=== PATIENT | female | born 2000 | race Caucasian/White ===

== ENCOUNTER 2023-06-09 18:41 | Emergency (ER) | payer SELFPAY ==
[2023-06-09 19:25] VITALS: BP 162/90; PULSE 87; RESP 16; TEMP 37.2; O2SAT 95; BMI 36.9
--- NOTE | 2023-06-09 19:43 | EXP.UTC ---
Discharge Plan Disposition Patient Disposition: Home, Self-Care Condition: Good Prescriptions Prescriptions: New cephalexin [cephalexin] 500 mg tablet 500 mg PO BID 7 Days Qty: 14 0RF Referrals Follow up/Referrals: Provider,Referral, MD [Primary Care Provider] - See instructions Activity Restrictions/Add. Instructions Additional Instructions/Restrictions: Increase fluids, water and not soda or tea. Can drink cranberry juice or cranberry extract. Wipe front to back Wear cotton underwear Empty bladder after intercourse Start antibiotics immediately and make sure you take the full course although you may start to see improvement over the next 48 hours. You can eat yogurt or take probiotics to decrease diarrhea or yeast infection caused by the antibiotic Be sure to follow-up anytime for new or worsening symptoms in 48 hours for wound urine culture results be sure to let you PCP no recent urine for culture so they can request records and ensure that you have appropriate antibiotic if you are not getting better or getting worse. If symptoms worsen or do not improve return or be seen in the ER. Follow-up with primary care this week. Clinical Impressions Clinical Impression: UTI (urinary tract infection) Qualifiers: Urinary tract infection type: acute cystitis Hematuria presence: without hematuria Qualified Code(s): N30.00 - Acute cystitis without hematuria Instructions Patient Instructions: DI for Urinary Tract Infection (UTI) [facility] [facility] [place] General Stated complaint: poss UTI Mode of Arrival: Ambulatory Source of Information: Patient Limitations: No Limitations Time Seen by Provider: 06/09/23 19:43 Description of Symptoms (Recalled from Triage Doc. by RN): Pt's symptoms are burning and pressure. HEENT Symptoms (Recalled from RN notes): Yes Resp Symptoms (Recalled from RN notes): No Skin Symptoms (Recalled from RN notes): No MS Symptoms (Recalled from RN notes): No Functional Status (Recalled from RN notes): n/a History of Present Illness Provider Complaint: 23 yr old female presents for burning, freq, urgency, pressure for 2 days Related Data Previous Rx's Medication Instructions Recorded cephalexin 500 mg tablet 500 mg PO BID 7 days #14 tabs 06/09/23 Allergies Allergy/AdvReac Type Severity Reaction Status Date / Time No Known Allergies Allergy Verified 06/09/23 19:40 Worker's Comp Is this a Worker's Comp case?: No [facility] Disclaimer: The information contained in this section may have been updated after the patient was seen, as this information can be updated by other users. Social History , BOX [employer]KER [employer]ER[employer]) Smoking Status: Smoker, status unknown alcohol intake: never current occupational status: employed Travel in the last 8 weeks: None ROS Obtained: Yes All systems reviewed & no additional complaints except as documented Constitutional Constitutional: Reports system reviewed and no additional complaints, except as documented Eyes Eyes: Reports system reviewed and no additional complaints, except as documented ENT Ears, Nose, Mouth, and Throat: Reports system reviewed and no additional complaints, except as documented Cardiovascular Cardiovascular: Reports system reviewed and no additional complaints, except as documented Respiratory Respiratory: Reports system reviewed and no additional complaints, except as documented Gastrointestinal Gastrointestingal: Reports system reviewed and no additional complaints, except as documented Genitourinary Female Genitourinary: Reports system reviewed and no additional complaints, except as documented, Reports as per HPI, Reports dysuria, Reports urinary frequency, Reports urinary hesitancy and Reports urinary urgency Musculoskeletal Musculoskeletal: Reports system reviewed and no additional complaints, except as documented Integumentary/Breasts Skin/Breast: Reports system reviewed and no additional complaints, except as documented Neurologic Neurologic: Reports system reviewed and no additional complaints, except as documented Endocrine Endocrine: Reports system reviewed and no additional complaints, except as documented Physical Exam General General appearance: alert and in no apparent distress ENT ENT exam: Present normal exam, normal oropharynx, mucous membranes moist, TM's normal bilaterally and normal external ear exam Neck Neck exam: Present normal inspection, full ROM and trachea midline; Absent meningismus or lymphadenopathy Respiratory Respiratory exam: Present normal lung sounds bilaterally; Absent respiratory distress Cardiovascular Cardiovascular exam: Present regular rate and normal rhythm; Absent JVD Abdominal Exam Abdominal exam: Present soft and normal bowel sounds; Absent distention, tenderness or guarding Neurological Exam Neurological exam: Present alert and oriented X3 Skin Skin exam: Present warm, dry, intact and normal color Medical Decision Making Medical Records Medical records reviewed: Yes I reviewed the patient's medical records. Anthony Inquiry Pt receiving controlled substance: No Anthony was queried for this patient: No Vital Signs: 06/09/23 19:25 Temperature 99.0 F Temperature Source Oral Pulse Rate [Right Radial] 87 Respiratory Rate 16 Blood Pressure [Right Arm] 162/90 H Blood Pressure Mean [Right Arm] 114 Blood Pressure Source [Right Arm] Automatic Cuff Blood Pressure Position [Right Arm] Sitting 02 Sat by Pulse Oximetry 95 Oxygen Delivery Method Room Air Orders (Tests/Meds): ORDERS Category Date Time Status Urine Culture Stat Micro 06/09/23 19:41 Ordered
[2023-06-09 19:49] LABS: Apearance,Urine Clear (Clear); Bilirubin,Urine Negative (Negative); Blood, Urine Negative (Negative); Color,Urine Yellow (Yellow); Glucose,Urine (UA) Negative (Negative); Ketones,Urine Negative (Negative); Protein,Urine Negative (Negative); UTC Leukocyte Esterase,Urine Trace (Negative); UTC Nitrate,Urine Negative (Negative); Urobilinogen,Urine 0.2 EU/dl (0.2)
[2023-06-09 19:56] VITALS: BP 162/90; PULSE 87; RESP 16; TEMP 37.2; O2SAT 95
== END 2023-06-09 19:56 | disposition home or self-care (01) ==
PROVIDERS: Emergency Provider Nurse Practitioner Family
DX: N39.0 Urinary tract infection, site not specified (principal); B96.89 Other specified bacterial agents as the cause of diseases classified elsewhere
CPT/HCPCS: 81003; 87086; 99204; 99212; G0463

== ENCOUNTER 2023-08-19 01:48 | Emergency (ER) | payer SELFPAY ==
[2023-08-19 01:49] VITALS: BP 135/81; PULSE 80; RESP 18; TEMP 36.5; O2SAT 98; BMI 29.0
--- NOTE | 2023-08-19 01:52 | PC.NURSE ---
Dr. Park utilized hemostats to remove earring back from earring post. No further injury noted.
--- NOTE | 2023-08-19 01:54 | HMH.EDGENADL ---
Discharge Plan Disposition Patient Disposition: Home, Self-Care Prescriptions Prescriptions: No Action cephalexin [cephalexin] 500 mg tablet 500 mg PO BID 7 Days Qty: 14 0RF Referrals Follow up/Referrals: Provider,Referral, MD [Primary Care Provider] - See instructions Clinical Impressions Clinical Impression: Ear foreign body Qualifiers: Encounter type: initial encounter Laterality: left Qualified Code(s): T16.2XXA - Foreign body in left ear, initial encounter Discharge ED Provider: Hebert Park General Adult HPI General Stated complaint: piercing stuck in left ear Time Seen by Provider: 08/19/23 01:50 History of Present Illness HPI narrative: 23-year-old female without significant past medical history presents because they cannot get the earring out of her right earlobe. It is hurting a little bit but not significantly. Is been no drainage. It has been present for a few months at least. Related Data Previous Rx's Medication Instructions Recorded cephalexin 500 mg tablet 500 mg PO BID 7 days #14 tabs 06/09/23 Allergies Allergy/AdvReac Type Severity Reaction Status Date / Time No Known Allergies Allergy Verified 06/09/23 19:40 [facility] Disclaimer: The information contained in this section may have been updated after the patient was seen, as this information can be updated by other users. Social History (Updated 06/09/23 @ 19:47 by Kenroy Castro ([facility]), SURGICAL TECHNOLOGY INSTRUCTOR) Smoking Status: Smoker, status unknown alcohol intake: never current occupational status: employed Travel in the last 8 weeks: None ROS Obtained: Yes All systems reviewed & no additional complaints except as documented Physical Exam General General appearance: alert and in no apparent distress Head Head exam: atraumatic and normocephalic Eye Eye exam: Present normal appearance, PERRL and EOMI ENT ENT exam: Present normal oropharynx, normal external ear exam and other (Stud earring in the left earlobe, free spinning, no erythema or drainage to suggest infection.) Neck Neck exam: Present normal inspection and full ROM Chest Chest inspection: Present normal inspection and symmetric chest wall rise; Absent tenderness Respiratory Respiratory exam: Present normal lung sounds bilaterally; Absent respiratory distress Cardiovascular Cardiovascular exam: Present regular rate and normal rhythm Abdominal Exam Abdominal exam: Present soft; Absent distention, tenderness or guarding Extremities Exam Extremities exam: Present normal inspection; Absent edema or joint swelling Back Exam Back exam: Present normal inspection; Absent tenderness Neurological Exam Neurological exam: Present alert and oriented X3; Absent motor sensory deficit Psychiatric Psychiatric exam: Present normal affect and normal mood Skin Skin exam: Present warm, dry and normal color Lymphatic Lymphatic Findings: no adenopathy Medical Decision Making Medical Records Medical records reviewed: Yes I reviewed the patient's medical records. Anthony Inquiry Pt receiving controlled substance: No Anthony was queried for this patient: No Lab Data Lab results reviewed: Yes I reviewed the patient's lab results. Medical Decision Narrative: 23-year-old female that significant medical history presents because they cannot get the earring out of her left earlobe. Differential diagnosis includes but limited to ear foreign body, infection. I utilized 2 hemostats to separate the 2 pieces of the earring without difficulty. No complications. Patient was discharged in stable condition. Procedures Risk/Benefits of Procedure(s) Were Explained: Yes Foreign Body Removal Site: left and ear (Lobe) Description of foreign body: other (Hearing) Technique: removal with forceps Confirmed by:: direct visualization Complications: none Critical Care Critical Care Time Critical Care Time: No
[2023-08-19 01:59] VITALS: BP 135/81; PULSE 80; RESP 18; TEMP 36.5; O2SAT 98
== END 2023-08-19 02:03 | disposition home or self-care (01) ==
LOC: ER 01:59
PROVIDERS: Emergency Provider Emergency Medicine
DX: S00.452A Superficial foreign body of left ear, initial encounter (principal); F17.210 Nicotine dependence, cigarettes, uncomplicated; W45.8XXA Other foreign body or object entering through skin, initial encounter
CPT/HCPCS: 99282

== ENCOUNTER 2023-09-13 14:12 | Emergency (ER) | payer SELFPAY ==
[2023-09-13 14:13] VITALS: BP 154/99; PULSE 75; RESP 13; TEMP 36.8; O2SAT 97; BMI 27.4
--- NOTE | 2023-09-13 14:15 | HMH.EDGENADL ---
Discharge Plan Disposition Patient Disposition: Home, Self-Care Condition: Good Prescriptions Prescriptions: New prednisone 50 mg tablet 50 mg PO DAILY 5 Days Qty: 5 0RF No Action cephalexin [cephalexin] 500 mg tablet 500 mg PO BID 7 Days Qty: 14 0RF Referrals Follow up/Referrals: Carol Ann Kelley MD [Referring] - See instructions (Contact dermatitis) Provider,MD Joel [Primary Care Provider] - See instructions Activity Restrictions/Add. Instructions Additional Instructions/Restrictions: He can take Benadryl by mouth every 4-6 hours as needed for itching. I have made a referral to dermatology for you. Return to ER for any worsening signs or symptoms. Clinical Impressions Clinical Impression: Contact dermatitis Qualifiers: Contact dermatitis type: unspecified Contact dermatitis trigger: unspecified trigger Qualified Code(s): L25.9 - Unspecified contact dermatitis, unspecified cause Discharge ED Provider: Farzad Dowling General Adult HPI <ANTHONY Cardona - Last Filed: 09/13/23 16:17> General Chief complaint: Skin/Abscess/Foreign Body Stated complaint: dots on your face Time Seen by Provider: 09/13/23 14:15 History of Present Illness HPI narrative: Patient presents for evaluation of a rash. Patient reports that over the last several days she has had eruptions all over her face that are itching and burning. Patient does not wear make-up and reports no new cosmetics lotions or other bath and body products. Patient feels like they are spreading. Patient denies fever chills hemoptysis hematochezia melena nausea vomit diarrhea. Related Data Previous Rx's Medication Instructions Recorded cephalexin 500 mg tablet 500 mg PO BID 7 days #14 tabs 06/09/23 prednisone 50 mg tablet 50 mg PO DAILY 5 days #5 tabs 09/13/23 Allergies Allergy/AdvReac Type Severity Reaction Status Date / Time No Known Allergies Allergy Verified 06/09/23 19:40 PFSH <ANTHONY Cardona - Last Filed: 09/13/23 16:17> [facility] Disclaimer: The information contained in this section may have been updated after the patient was seen, as this information can be updated by other users. Social History (Updated 06/09/23 @ 19:47 by Kenroy Castro ([facility] [[email or web address] AUXILIARY ENGINEER) Smoking Status: Never smoker alcohol intake: never current occupational status: employed Travel in the last 8 weeks: None <ANTHONY Cardona - Last Filed: 09/13/23 16:17> ROS Obtained: Yes Systems reviewed as appropriate & no additional complaints except as documented Physical Exam <ANTHONY Cardona - Last Filed: 09/13/23 16:17> General General appearance: alert and in no apparent distress Eye Eye exam: Present normal appearance Respiratory Respiratory exam: Present normal lung sounds bilaterally Cardiovascular Cardiovascular exam: Present regular rate and normal rhythm Neurological Exam Neurological exam: Present alert and oriented X3 Other Other exam information: Patient has erythema and a slightly raised papular rash primarily along her hairline but also scattered across her face with some evidence of excoriation but no drainage vesicles. They do not look like they have a comedone. Medical Decision Making <ANTHONY Cardona - Last Filed: 09/13/23 16:17> Medical Records Medical records reviewed: Yes I reviewed the patient's medical records. Anthony Inquiry Pt receiving controlled substance: No Vital Signs: 09/13/23 14:13 09/13/23 14:42 Temperature 98.2 F 98.2 F Temperature Source Oral Oral Pulse Rate 72 Pulse Rate [Left Radial] 75 Respiratory Rate 13 20 Blood Pressure 148/84 H Blood Pressure [Right Arm] 154/99 H Blood Pressure Mean [Right Arm] 117 02 Sat by Pulse Oximetry 97 Oxygen Delivery Method Room Air Room Air Orders (Tests/Meds): ED MEDICATIONS Discontinued Medications Generic Name Dose Route Start Last Admin Trade Name Freq PRN Reason Stop Dose Admin Diphenhydramine HCl 50 mg 09/13/23 14:40 09/13/23 14:47 Diphenhydramine 25mg Capsule PO 09/13/23 14:41 50 mg ONCE ONE Administration Prednisone 40 mg 09/13/23 14:40 09/13/23 14:48 Prednisone 20mg Tab PO 09/13/23 14:41 40 mg ONCE ONE Administration Medical Decision Narrative: In summary patient is a 23-year-old female who presents to the emergency department for evaluation of a rash on her face. Patient is hemodynamically stable upon arrival, afebrile. Physical exam is remarkable for a papular scattered rash without evidence of blisters.. Differential diagnosis includes contact dermatitis versus versus seborrheic dermatitis versus eczema etc. Intervention will be Benadryl now along with symptomatic treatment. I will refer the patient to dermatology. I had an interactive discussion with the patient options of symptomatic treatment for direct referral to dermatology. Patient via self-directed decision making elected to be referred to dermatology. Given that patient is appropriate for discharge with symptomatic treatment <Farzad Dowling MD - Last Filed: 09/14/23 10:11> Vital Signs: 09/13/23 14:13 09/13/23 14:42 Temperature 98.2 F 98.2 F Temperature Source Oral Oral Pulse Rate 72 Pulse Rate [Left Radial] 75 Respiratory Rate 13 20 Blood Pressure 148/84 H Blood Pressure [Right Arm] 154/99 H Blood Pressure Mean [Right Arm] 117 02 Sat by Pulse Oximetry 97 Oxygen Delivery Method Room Air Room Air Orders (Tests/Meds): ED MEDICATIONS Discontinued Medications Generic Name Dose Route Start Last Admin Trade Name Freq PRN Reason Stop Dose Admin Diphenhydramine HCl 50 mg 09/13/23 14:40 09/13/23 14:47 Diphenhydramine 25mg Capsule PO 09/13/23 14:41 50 mg ONCE ONE Administration Prednisone 40 mg 09/13/23 14:40 09/13/23 14:48 Prednisone 20mg Tab PO 09/13/23 14:41 40 mg ONCE ONE Administration Medical Decision Narrative: In summary patient is a 23-year-old female who presents to the emergency department for evaluation of a rash on her face. Patient is hemodynamically stable upon arrival, afebrile. Physical exam is remarkable for a papular scattered rash without evidence of blisters.. Differential diagnosis includes contact dermatitis versus versus seborrheic dermatitis versus eczema etc. Intervention will be Benadryl now along with symptomatic treatment. I will refer the patient to dermatology. I had an interactive discussion with the patient options of symptomatic treatment for direct referral to dermatology. Patient via self-directed decision making elected to be referred to dermatology. Given that patient is appropriate for discharge with symptomatic treatment. I was consulted by the EDI, and we discussed the complexity of the problems being addressed. I approved the treatment and management plan for this patient?s care in the Emergency Department, thus performing a substantive portion of the medical decision making. I feel this rash is consistent with contact dermatitis, likely secondary to poison patrice or poison oak. Farzad Dowling MD Critical Care <ANTHONY Cardona - Last Filed: 09/13/23 16:17> Critical Care Time Critical Care Time: No
[2023-09-13 14:42] VITALS: BP 148/84; PULSE 72; RESP 20; TEMP 36.8; O2SAT 97
[2023-09-13] MEDS: diphenhydrAMINE 25MG CAPSULE 50 MG PO (14:47)
[2023-09-13] MEDS: predniSONE 20MG TAB 40 MG PO (14:48)
== END 2023-09-13 14:49 | disposition home or self-care (01) ==
PROVIDERS: Emergency Provider Emergency Medicine
DX: L25.9 Unspecified contact dermatitis, unspecified cause (principal)
CPT/HCPCS: 99283

== ENCOUNTER 2023-11-25 17:05 | Emergency (ER) | payer SELFPAY ==
--- NOTE | 2023-11-25 17:14 | EXP.UTC ---
Discharge Plan Disposition Patient Disposition: Home, Self-Care Condition: Good Prescriptions Prescriptions: New omeprazole 40 mg capsule,delayed release(DR/EC) 40 mg PO DAILY Qty: 30 2RF No Action cephalexin [cephalexin] 500 mg tablet 500 mg PO BID 7 Days Qty: 14 0RF prednisone 50 mg tablet 50 mg PO DAILY 5 Days Qty: 5 0RF Referrals Follow up/Referrals: Provider,Referral, MD [Primary Care Provider] - See instructions Clinical Impressions Clinical Impression: Left upper quadrant abdominal pain Stand Alone Forms Stand Alone Forms: Work/School Release Instructions Patient Instructions: DI for Peptic Ulcer Print Language Print Language: Thai Discharge ED Provider: Juliane Rahman [facility] [place] HPI General Stated complaint: abd pain Time Seen by Provider: 11/25/23 17:24 History of Present Illness Provider Complaint: Left upper quadrant pain. Started 3 days ago after eating spicy food. Comes and goes. Better when she eats. Worse when she leans on her left side. No vomiting or diarrhea. Onset (ago): day(s) Location: abdomen Radiation: non-radiation Relieving factors: none Exacerbating factors: none Associated symptoms: denies other symptoms Treatments prior to arrival: none Related Data Previous Rx's ?Medication ?Instructions ?Recorded cephalexin 500 mg tablet 500 mg PO BID 7 days #14 tabs 06/09/23 prednisone 50 mg tablet 50 mg PO DAILY 5 days #5 tabs 09/13/23 omeprazole 40 mg capsule,delayed 40 mg PO DAILY #30 caps 11/25/23 release Allergies Allergy/AdvReac Type Severity Reaction Status Date / Time No Known Allergies Allergy Verified 06/09/23 19:40 [facility] Disclaimer: The information contained in this section may have been updated after the patient was seen, as this information can be updated by other users. Social History (Updated 06/09/23 @ 19:47 by Kenroy Castro ([facility]), SHREDDED FILLER MACHINE WRAPPER LAYER) Smoking Status: Never smoker alcohol intake: never current occupational status: employed Travel in the last 8 weeks: None ROS Obtained: Yes All systems reviewed & no additional complaints except as documented Gastrointestinal Gastrointestingal: Reports abdominal pain and dyspepsia Physical Exam General General appearance: alert and in no apparent distress Head Head exam: atraumatic, normocephalic and normal inspection Eye Eye exam: Present normal appearance, PERRL and EOMI ENT ENT exam: Present normal exam, normal oropharynx, mucous membranes moist, TM's normal bilaterally and normal external ear exam Neck Neck exam: Present normal inspection, full ROM and trachea midline; Absent meningismus or lymphadenopathy Chest Chest inspection: Present normal inspection and symmetric chest wall rise; Absent tenderness Respiratory Respiratory exam: Present normal lung sounds bilaterally; Absent respiratory distress Cardiovascular Cardiovascular exam: Present regular rate and normal rhythm; Absent JVD Abdominal Exam Abdominal exam: Present soft, tenderness and normal bowel sounds; Absent distention or guarding Abdominal tenderness: Present LUQ Extremities Exam Extremities exam: Present normal inspection, full ROM and normal capillary refill; Absent calf tenderness Back Exam Back exam: Present normal inspection; Absent tenderness Neurological Exam Neurological exam: Present alert and oriented X3 Psychiatric Psychiatric exam: Present normal affect and normal mood Skin Skin exam: Present warm, dry, intact and normal color Lymphatic Lymphatic Findings: no adenopathy Medical Decision Making Anthony Inquiry Pt receiving controlled substance: No
[2023-11-25 17:15] VITALS: BP 123/80; PULSE 74; RESP 20; TEMP 36.9; O2SAT 98; BMI 42.7
[2023-11-25 17:29] VITALS: BP 123/80; PULSE 74; RESP 20; TEMP 36.9; O2SAT 98
== END 2023-11-25 17:37 | disposition home or self-care (01) ==
PROVIDERS: Emergency Provider Physician Assistant
DX: R10.12 Left upper quadrant pain (principal)
CPT/HCPCS: 99212; 99214; G0463

== ENCOUNTER 2024-02-18 05:45 | Emergency (ER) | payer MEDICAID, SELFPAY ==
[2024-02-18 05:46] VITALS: BP 129/79; PULSE 91; RESP 17; TEMP 36.4; O2SAT 98; BMI 39.7
--- NOTE | 2024-02-18 06:00 | ED_ITS ---
Discharge Plan Disposition Patient Disposition: Home, Self-Care Prescriptions Prescriptions: New omeprazole 40 mg capsule,delayed release(DR/EC) 40 mg PO DAILY 56 Days Qty: 56 2RF Referrals Follow up/Referrals: Provider,Referral, [Primary Care Provider] - See instructions Activity Restrictions/Add. Instructions Additional Instructions/Restrictions: Recommend restarting your omeprazole. I sent in a prescription. Please take Tylenol as needed for pain. Please avoid NSAIDs such as ibuprofen as much as she can. Recommend starting daily MiraLAX. Your goal should be to have 1-2 soft stools per day. If you find the MiraLAX is not working, recommend trialing enemas at home. Clinical Impressions Clinical Impression: Constipation, Epigastric abdominal pain Stand Alone Forms Stand Alone Forms: Work/School Release Instructions Patient Instructions: Increased Dietary Fiber May Improve Constipation Conditions With Pelvic Jarvis, DI for Abdominal Pain-Adult, DI for Constipation Print Language Print Language: Greenlandic Discharge ED Provider: [place] [facility] General Chief complaint: Abdominal Pain Stated complaint: abd pain Time Seen by Provider: 02/18/24 05:50 Mode of Arrival: Family Vehicle Source of Information: Patient and Medical Record Limitations: No Limitations Description of Symptoms (Recalled from ER Triage Doc. by RN): Pt c/o periumbilical pain. States she was seen a few months ago and told she had an ulcer but no formal testing completed. Pt states the pain has been back for 2 days. Deines any vomiting or diarrhea. Denies any fever, body aches, or chills. Denies any urinary complaints. History of Present Illness HPI narrative: 24-year-old female with reported history of prior stomach ulcer presents for abdominal pain. She reports it is intermittent in nature, worse with laying down. She reports sometimes starts as a button and radiates up but also sometimes radiates down. She denies any fevers, denies any significant nausea. She reports chronic constipation and that she normally does not have bowel movements for 2 to 3 weeks at a time. She reports that she was previously placed on omeprazole which resolved her pain, but she stopped taking it recently. Related Data Previous Rx's ?Medication ?Instructions ?Recorded omeprazole 40 mg capsule,delayed 40 mg PO DAILY 8 weeks #56 caps 02/18/24 release Allergies Allergy/AdvReac Type Severity Reaction Status Date / Time No Known Allergies Allergy Verified 06/09/23 19:40 [facility] Disclaimer: The information contained in this section may have been updated after the patient was seen, as this information can be updated by other users. Social History (Updated 06/09/23 @ 19:47 by Kenroy Castro ([facility]), DOCUMENT CONTROL COORDINATOR) Smoking Status: Current every day smoker alcohol intake: never current occupational status: employed Travel in the last 8 weeks: None ROS Obtained: Yes All systems reviewed & no additional complaints except as documented Physical Exam General General appearance: alert and in no apparent distress Head Head exam: atraumatic and normocephalic Eye Eye exam: Present normal appearance, PERRL and EOMI ENT ENT exam: Present normal oropharynx and normal external ear exam Neck Neck exam: Present normal inspection and full ROM Chest Chest inspection: Present normal inspection and symmetric chest wall rise; Absent tenderness Respiratory Respiratory exam: Present normal lung sounds bilaterally; Absent respiratory di stress Cardiovascular Cardiovascular exam: Present regular rate and normal rhythm Abdominal Exam Abdominal exam: Present soft; Absent distention, tenderness or guarding Extremities Exam Extremities exam: Present normal inspection; Absent edema or joint swelling Back Exam Back exam: Present normal inspection; Absent tenderness Neurological Exam Neurological exam: Present alert and oriented X3; Absent motor sensory deficit Psychiatric Psychiatric exam: Present normal affect and normal mood Skin Skin exam: Present warm, dry and normal color Lymphatic Lymphatic Findings: no adenopathy Medical Decision Making Medical Records Medical records reviewed: Yes I reviewed the patient's medical records. Screening: Per USPSTF and CDC recommendations, given the prevalence of disease in our region, it is our hospital?s policy to screen for HIV and viral Hepatitis for all patients aged 18 and over and those with ongoing risk factors. Anthony Inquiry Pt receiving controlled substance: No Anthony was queried for this patient: No Vital Signs: 02/18/24 05:46 Temperature 97.6 F Temperature Source Oral Pulse Rate [Right] 91 H Respiratory Rate 17 Blood Pressure [Right Arm] 129/79 Blood Pressure Mean [Right Arm] 95 Blood Pressure Source [Right Arm] Automatic Cuff 02 Sat by Pulse Oximetry 98 Oxygen Delivery Method Room Air Lab Data Lab results reviewed: Yes I reviewed the patient's lab results. Medical Decision Narrative: 24-year-old female presents for intermittent abdominal pain. History was obtained via interactive discussion with patient, family, chart review. On arrival, patient is [afebrile, hemodynamically stable, satting appropriately, alert, oriented x4, GCS 15], moving all extremities spontaneously. Full physical exam performed and significant for no significant abdominal tenderness Differential includes but is not limited to peptic ulcer disease, gastritis, constipation, appendicitis, cholecystitis. Blood work, urinalysis, CT imaging was considered, but deemed unnecessary due to history and exam. Given patient history, exam and workup, patient's presentation most likely represents gastritis and constipation. I had extensive discussion with patient regarding her presentation. Given duration of symptoms and benign exam, I do not think that she needs CT imaging at this time. I gave return precautions for development of signs and symptoms of appendicitis, cholecystitis etc. Recommended she begin taking MiraLAX and using enemas as needed to achieve daily soft stools. I also recommended she restart her omeprazole and take Tylenol, avoid NSAIDs etc. She was discharged in stable condition. Procedures Risk/Benefits of Procedure(s) Were Explained: Yes Critical Care Critical Care Time Critical Care Time: No
[2024-02-18 06:06] VITALS: BP 128/80; PULSE 88; RESP 18; TEMP 36.4; O2SAT 98
== END 2024-02-18 06:17 | disposition home or self-care (01) ==
PROVIDERS: Emergency Provider Emergency Medicine
DX: R10.13 Epigastric pain (principal); K59.00 Constipation, unspecified; R10.9 Unspecified abdominal pain
CPT/HCPCS: 99282

== ENCOUNTER 2024-04-08 14:12 | Emergency (ER) | payer MEDICAID, SELFPAY ==
[2024-04-08 14:42] VITALS: BP 102/84; PULSE 102; RESP 18; TEMP 37.4; O2SAT 98; BMI 43.4
[2024-04-08 14:51] LABS: UTC Pregnancy Test, Urine Negative (Negative)
--- NOTE | 2024-04-08 15:12 | ED_ITS ---
Discharge Plan Disposition Patient Disposition: Home, Self-Care Condition: Good Prescriptions Prescriptions: New polyethylene glycol 3350 [Miralax] 17 gram/dose powder 17 g PO DAILY PRN (Reason: constipation) Qty: 238 0RF magnesium citrate [Citroma] Solution 300 ml PO ONCE Qty: 296 0RF No Action omeprazole 40 mg capsule,delayed release(DR/EC) 40 mg PO DAILY 56 Days Qty: 56 2RF Referrals Follow up/Referrals: Provider,Referral, MD [Primary Care Provider] - See instructions Activity Restrictions/Add. Instructions Additional Instructions/Restrictions: Drink the magnesium citrate as directed, should produce bowel movement in 6-8 hours and you may have diarrhea until cleaned out, may have some cramping after but should subside after bowels cleaned out Drink Miralax as directed as needed for constipation Follow up with your Doctor if no improvement or any worsening of symptoms Straight to ER if any life threatening symptoms Make sure to drink plenty of fluids like water, make sure to eat fruits and vegetables Make sure to get adequate fiber and fluids in your diet to prevent constipation Clinical Impressions Clinical Impression: Constipation Instructions Patient Instructions: Constipation, DI for Constipation, Magnesium Citrate Print Language Print Language: Turkish Discharge ED Provider: Raven Batista [facility] [place] HPI General Stated complaint: possible pulled muscle stomach Mode of Arrival: Ambulatory Source of Information: Patient Time Seen by Provider: 04/08/24 15:12 Description of Symptoms (Recalled from Triage Doc. by RN): PAIN IN STOMACH, MIDDLE OF STOMACH HEENT Symptoms (Recalled from RN notes): No Resp Symptoms (Recalled from RN notes): No Skin Symptoms (Recalled from RN notes): No MS Symptoms (Recalled from RN notes): Yes Functional Status (Recalled from RN notes): WNL History of Present Illness Provider Complaint: Patient states that she woke up in the middle of the night last night and rolled over and started having pain in her mid abdomen States that pain is worse with certain ways she moves but is constant States that she has not had any fever, chills or flu like symptoms Denies any other pain States that she does have hx of ulcers but they havent been bothering her and this pain is different She thought she may have pulled a muscle in her stomach when she rolled over or something States that last BM was yesterday and was normal Related Data Previous Rx's ?Medication ?Instructions ?Recorded omeprazole 40 mg capsule,delayed 40 mg PO DAILY 8 weeks #56 caps 02/18/24 release magnesium citrate (Citroma oral 300 ml PO ONCE #296 mL 04/08/24 solution) polyethylene glycol 3350 17 17 g PO DAILY PRN constipation 04/08/24 gram/dose oral powder (Miralax) #238 grams Allergies Allergy/AdvReac Type Severity Reaction Status Date / Time No Known Allergies Allergy Verified 06/09/23 19:40 Worker's Comp Is this a Worker's Comp case?: No [facility] Disclaimer: The information contained in this section may have been updated after the patient was seen, as this information can be updated by other users. Social History (Updated 06/09/23 @ 19:47 by Kenroy Castro ([facility]), NOC ANALYST) Smoking Status: Current every day smoker alcohol intake: never current occupational status: employed Travel in the last 8 weeks: None ROS Obtained: Yes All systems reviewed & no additional complaints except as documented and Yes Systems reviewed as appropriate & no additional complaints except as documented Constitutional Constitutional: Reports system reviewed and no additional complaints, except as documented, Reports as per HPI, Denies body ache, Denies chills, Denies fever(s) and Reports headache(s) ENT Ears, Nose, Mouth, and Throat: Reports headache(s) Cardiovascular Cardiovascular: Reports system reviewed and no additional complaints, except as documented and Reports as per HPI Respiratory Respiratory: Reports system reviewed and no additional complaints, except as documented and Reports as per HPI Gastrointestinal Gastrointestingal: Reports system reviewed and no additional complaints, except as documented, as per HPI, abdominal pain (reports pain in her mid abdomen, worse with movement) and other (last BM yesterday); Denies belching, bloating, constipation, cramping, diarrhea, dyspepsia, hematochezia, melena or nausea Genitourinary Female Genitourinary: Reports system reviewed and no additional complaints, except as documented, Reports as per HPI, Denies dysuria, Denies flank pain, Denies urinary frequency and Denies urinary urgency Musculoskeletal Musculoskeletal: Reports system reviewed and no additional complaints, except as documented and Reports as per HPI Integumentary/Breasts Skin/Breast: Reports system reviewed and no additional complaints, except as documented and Reports as per HPI Neurologic Neurologic: Reports headache(s) Physical Exam General General appearance: alert and in no apparent distress ENT ENT exam: Present mucous membranes moist Respiratory Respiratory exam: Present normal lung sounds bilaterally; Absent respiratory distress or wheezes Cardiovascular Cardiovascular exam: Present regular rate, normal rhythm and normal heart sounds Abdominal Exam Abdominal exam: Present soft, tenderness (reports mild tenderness with palpation umbilical area hx of constipation) and normal bowel sounds; Absent distention, guarding or rebound Neurological Exam Neurological exam: Present alert, oriented X3 and normal gait Medical Decision Making Medical Records Screening: Per USPSTF and CDC recommendations, given the prevalence of disease in our region, it is our hospital?s policy to screen for HIV and viral Hepatitis for all patients aged 18 and over and those with ongoing risk factors. Anthony Inquiry Pt receiving controlled substance: No Anthony was queried for this patient: No Vital Signs: 04/08/24 14:42 Temperature 99.3 F Temperature Source Oral Pulse Rate [Right Brachial] 102 H Respiratory Rate 18 Blood Pressure [Left Arm] 102/84 L Blood Pressure Mean [Left Arm] 90 02 Sat by Pulse Oximetry 98 Lab Data Lab Results 04/08/24 14:44: [facility] Negative Radiology Data #1: Image(s): KUB Image Reviewed: Yes I have reviewed radiologist's interpretation IMPRESSION: At the time of imaging, the abdominal radiograph demonstrates large volume stool throughout the colon which may reflect constipation. Medical Decision Narrative: Patient was ordered GI [place] and she took small sip and then refused the medication and threw it away Discussed transfer to the ED patient elected to try Magnesium Citrate an Miralax and will pick a Family Doctor and follow up if no improvement
--- NOTE | 2024-04-08 15:27 | XR_ITS ---
PROCEDURE INFORMATION: Exam: XR Abdomen Exam date and time: 04/08/2024 3:25 PM Age: 24 years old Clinical indication: Constipation; Additional info: HX constipation/mid abdominal discomfort TECHNIQUE: Imaging protocol: Radiologic exam of the abdomen. Views: Frontal supine view of the abdomen. 1 View. COMPARISON: No relevant prior studies available. FINDINGS: Gastrointestinal tract: There is a large volume of stool throughout the colon which may reflect constipation. Intraperitoneal space: Standard views of the abdomen were obtained. No evidence of obstruction, perforation, or free intraperitoneal air is observed. Organs: Liver, spleen, and renal shadows appear unremarkable. Bones/joints: Unremarkable. IMPRESSION: At the time of imaging, the abdominal radiograph demonstrates large volume stool throughout the colon which may reflect constipation.
[2024-04-08 15:30] LABS: Apearance,Urine Clear (Clear); Color,Urine Yellow (Yellow)
[2024-04-08 15:31] LABS: Bilirubin,Urine Negative (Negative); Blood, Urine Trace (Negative); Glucose,Urine (UA) Negative (Negative); Ketones,Urine Negative (Negative); Protein,Urine Negative (Negative); UTC Leukocyte Esterase,Urine Trace (Negative); UTC Nitrate,Urine Negative (Negative); Urobilinogen,Urine 0.2 EU/dl (0.2)
[2024-04-08 16:14] VITALS: BP 102/84; PULSE 102; RESP 18; TEMP 37.4
== END 2024-04-08 16:15 | disposition home or self-care (01) ==
PROVIDERS: Emergency Provider Nurse Practitioner
DX: K59.00 Constipation, unspecified (principal); R10.9 Unspecified abdominal pain; R51.9 Headache, unspecified
CPT/HCPCS: 74018; 81003; 81025; 99212; G0381

== ENCOUNTER 2024-05-10 11:27 | Emergency (ER) | payer MEDICAID, SELFPAY ==
[2024-05-10 11:40] VITALS: BP 141/86; PULSE 85; RESP 18; TEMP 36.8; O2SAT 98; BMI 44.2
--- NOTE | 2024-05-10 11:42 | ED_ITS ---
Discharge Plan Disposition Patient Disposition: Home, Self-Care Condition: Good Prescriptions Prescriptions: New amoxicillin 875 mg tablet 875 mg PO Q12H Qty: 20 0RF [id number] [Bromfed DM] 2-30-10 mg/5 mL Syrup 5 ml PO Q6H PRN (Reason: Cough) Qty: 240 0RF No Action omeprazole 40 mg capsule,delayed release(DR/EC) 40 mg PO DAILY Patient Comments: TAKE 1 CAPSULE BY MOUTH ONCE DAILY Referrals Follow up/Referrals: Provider,Referral, MD [Primary Care Provider] - See instructions Activity Restrictions/Add. Instructions Additional Instructions/Restrictions: Drink plenty of fluids. Take tylenol or ibuprofen for pain or fever. Take the medications as directed. Follow up with your regular doctor. GO TO THE ER FOR ANY WORSENING SYMPTOMS Clinical Impressions Clinical Impression: Otitis media Instructions Patient Instructions: Middle Ear Infection, Amoxicillin Print Language Print Language: Yi Discharge ED Provider: Aakash Verdin [facility] [place] General Stated complaint: Pain R ear Time Seen by Provider: 05/10/24 11:42 History of Present Illness Provider Complaint: She states that for the past 4 days she has had worsening sinus congestion and ear pain. Related Data Home Medications ?Medication ?Instructions ?Recorded ?Confirmed omeprazole 40 mg capsule,delayed 40 mg PO DAILY 05/10/24 05/10/24 release Previous Rx's ?Medication ?Instructions ?Recorded amoxicillin 875 mg tablet 875 mg PO Q12H #20 tabs 05/10/24 [id number] 5 ml PO Q6H PRN Cough #240 mL 05/10/24 2 mg-30 mg-10 mg/5 mL oral syrup (Bromfed DM) Allergies Allergy/AdvReac Type Severity Reaction Status Date / Time No Known Allergies Allergy Verified 06/09/23 19:40 [facility] Disclaimer: The information contained in this section may have been updated after the patient was seen, as this information can be updated by other users. Medical History (Updated 05/10/24 @ 12:11 by Aakash Verdin APRN) Depression Anxiety Social History (Updated 06/09/23 @ 19:[address] [facility] SHILA) Smoking Status: Current every day smoker alcohol intake: never current occupational status: employed Travel in the last 8 weeks: None Have you lived/traveled outside [place] in past 30 days?: No Contact w/someone who lives/traveled outside US past 30 days?: No Exposure to someone with infectious disease in past 14 days?: No Do you have a fever (greater than 100.4 F or 38 C)?: No Have you tested positive for COVID-19: No Exposed to someone with COVID-19 in past 14 days?: No Do you have a sore throat?: No Do you have a cough?: No Do you have any weakness?: No Do you have any diarrhea?: No Are you experiencing any unusual bleeding?: No Do you have any muscle aches/pain?: No Do you have any abdominal pain?: No Are you experiencing loss of taste or smell?: No ROS Obtained: Yes All systems reviewed & no additional complaints except as documented Constitutional Constitutional: Denies chills, Reports fever(s) and Reports poor appetite Eyes Eyes: Denies eye discharge ENT Ears, Nose, Mouth, and Throat: Denies ear discharge, Reports otalgia, Denies hearing loss, Denies sinus pain and Reports sore throat Cardiovascular Cardiovascular: Denies chest pain and Denies dyspnea Respiratory Respiratory: Denies chest congestion, Reports cough and Denies dyspnea Gastrointestinal Gastrointestingal: Denies abdominal pain, diarrhea, nausea or vomiting Musculoskeletal Musculoskeletal: Denies arthralgias Integumentary/Breasts Skin/Breast: Denies rash Physical Exam General General appearance: alert and in no apparent distress Head Head exam: atraumatic, normocephalic and normal inspection Eye Eye exam: Present normal appearance; Absent PERRL or EOMI ENT ENT exam: Present mucous membranes moist and normal external ear exam Expanded ENT Exam TM/Canal exam: Bilateral TM: erythema, bulging and effusion Nose exam: Absent sinus tenderness Nasal speculum exam: Bilateral: normal Mouth exam: Present normal external inspection and other; Absent drooling Teeth exam: Present normal inspection Throat exam: Present tonsillar erythema and tonsillomegaly Neck Neck exam: Present normal inspection, full ROM and trachea midline; Absent tenderness, meningismus or lymphadenopathy Chest Chest inspection: Present normal inspection and symmetric chest wall rise; Absent tenderness Respiratory Respiratory exam: Present normal lung sounds bilaterally; Absent respiratory distress, wheezes or stridor Cardiovascular Cardiovascular exam: Present regular rate, normal rhythm and normal heart sounds; Absent tachycardia or irregular rhythm Abdominal Exam Abdominal exam: Present soft and normal bowel sounds; Absent distention, tenderness, guarding, rebound or rigidity Extremities Exam Extremities exam: Present normal inspection and normal capillary refill; Absent tenderness, joint swelling or calf tenderness Back Exam Back exam: Present normal inspection and full ROM; Absent tenderness, CVA tenderness (R) or CVA tenderness (L) Neurological Exam Neurological exam: Present alert, oriented X3, CN II-XII intact, normal gait and reflexes normal; Absent motor sensory deficit Psychiatric Psychiatric exam: Present normal affect and normal mood Skin Skin exam: Present warm, dry, intact and normal color Lymphatic Lymphatic Findings: no adenopathy Medical Decision Making Medical Records Medical records reviewed: No I reviewed the patient's medical records. Screening: Per USPSTF and CDC recommendations, given the prevalence of disease in our region, it is our hospital?s policy to screen for HIV and viral Hepatitis for all patients aged 18 and over and those with ongoing risk factors. Anthony Inquiry Pt receiving controlled substance: No
[2024-05-10 12:14] VITALS: BP 141/86; PULSE 85; RESP 18; TEMP 36.8; O2SAT 98
== END 2024-05-10 12:16 | disposition home or self-care (01) ==
PROVIDERS: Emergency Provider Nurse Practitioner Family
DX: H66.90 Otitis media, unspecified, unspecified ear (principal)
CPT/HCPCS: 99213; G0381

== ENCOUNTER 2024-05-11 00:29 | Emergency (ER) | payer MEDICAID, SELFPAY ==
--- NOTE | 2024-05-11 00:28 | ECG_ITS ---
APPROVED REPORT Exam: Resting ECG HR:86 bpm ECG Measurements Heart Rate 86 AXES VT 196 P 38 QRSd 94 QRS 91 QT 378 T 47 QTc 421 Conclusion SINUS RHYTHM BORDERLINE RIGHT AXIS DEVIATION [QRS AXIS > 90] NONSPECIFIC T-WAVE ABNORMALITY BORDERLINE ECG UNCONFIRMED REPORT Electronically signed by : RON BRODERICK, 05/12/2024 06:32:31
[2024-05-11 00:30] VITALS: BP 193/97; PULSE 101; RESP 16; TEMP 36.6; O2SAT 97; BMI 32.3
--- NOTE | 2024-05-11 00:31 | ED_ITS ---
Discharge Plan Disposition Patient Disposition: Home, Self-Care Prescriptions Prescriptions: New amoxicillin 400 mg/5 mL suspension for reconstitution 875 mg PO BID 6 Days Qty: 131.25 0RF No Action omeprazole 40 mg capsule,delayed release(DR/EC) 40 mg PO DAILY Patient Comments: TAKE 1 CAPSULE BY MOUTH ONCE DAILY amoxicillin 875 mg tablet 875 mg PO Q12H Qty: 20 0RF hyfouxvnmhzizmt-ueckhweoc-MU [Bromfed DM] 2-30-10 mg/5 mL Syrup 5 ml PO Q6H PRN (Reason: Cough) Qty: 240 0RF Activity Restrictions/Add. Instructions Additional Instructions/Restrictions: Please discontinue the amoxicillin tablets and start the amoxicillin liquid. please follow-up with your primary care provider. Please return to the emergency department if you develop any new or worsening symptoms or become concerned for your health. Clinical Impressions Clinical Impression: Esophageal pain Print Language Print Language: Chinese Discharge ED Provider: Hebert Park Adult HPI General Chief complaint: Chest Pain Stated complaint: Chest Pain Time Seen by Provider: 05/11/24 00:30 History of Present Illness HPI narrative: 24-year-old female, seen earlier today and diagnosed with ear infection presents for chest pain after swallowing her first dose of amoxicillin. She reports it began immediately after swallowing. She is still able to swallow and maintain her secretions. She denies any other symptoms such as hives shortness of breath etc. Happened just prior to arrival. Related Data Home Medications ?Medication ?Instructions ?Recorded ?Confirmed omeprazole 40 mg capsule,delayed 40 mg PO DAILY 05/10/24 05/10/24 release Previous Rx's ?Medication ?Instructions ?Recorded amoxicillin 875 mg tablet 875 mg PO Q12H #20 tabs 05/10/24 aiczpmxicnollkb-irwouqwftapbxol-YW 5 ml PO Q6H PRN Cough #240 mL 05/10/24 2 mg-30 mg-10 mg/5 mL oral syrup (Bromfed DM) amoxicillin 400 mg/5 mL oral 875 mg (10.9375 mL) PO BID 6 days 05/11/24 suspension #131.25 mL Allergies Allergy/AdvReac Type Severity Reaction Status Date / Time No Known Allergies Allergy Verified 06/09/23 19:40 [facility] Disclaimer: The information contained in this section may have been updated after the patient was seen, as this information can be updated by other users. Medical History (Updated 05/11/24 @ 01:00 by Hebert Park MD) Depression Anxiety Social History (Updated 06/09/23 @ 19:47 by Kenroy Castro ([facility]), NIB ASSEMBLER) Smoking Status: Never smoker alcohol intake: never current occupational status: employed Travel in the last 8 weeks: None Have you lived/traveled outside US in past 30 days?: No Contact w/someone who lives/traveled outside US past 30 days?: No Exposure to someone with infectious disease in past 14 days?: No Do you have a fever (greater than 100.4 F or 38 C)?: No Have you tested positive for COVID-19: No Exposed to someone with COVID-19 in past 14 days?: No Do you have a sore throat?: No Do you have a cough?: No Do you have any weakness?: No Do you have any diarrhea?: No Are you experiencing any unusual bleeding?: No Do you have any muscle aches/pain?: No Do you have any abdominal pain?: No Are you experiencing loss of taste or smell?: No ROS Obtained: Yes All systems reviewed & no additional complaints except as documented Physical Exam General General appearance: alert and in no apparent distress Head Head exam: atraumatic and normocephalic Eye Eye exam: Present normal appearance, PERRL and EOMI ENT ENT exam: Present normal oropharynx and normal external ear exam Neck Neck exam: Present normal inspection and full ROM Chest Chest inspection: Present normal inspection and symmetric chest wall rise; Absent tenderness Respiratory Respiratory exam: Present normal lung sounds bilaterally; Absent respiratory distress Cardiovascular Cardiovascular exam: Present regular rate and normal rhythm Abdominal Exam Abdominal exam: Present soft; Absent distention, tenderness or guarding Extremities Exam Extremities exam: Present normal inspection; Absent edema or joint swelling Back Exam Back exam: Present normal inspection; Absent tenderness Neurological Exam Neurological exam: Present alert and oriented X3; Absent motor sensory deficit Psychiatric Psychiatric exam: Present normal affect and normal mood Skin Skin exam: Present warm, dry and normal color Lymphatic Lymphatic Findings: no adenopathy Medical Decision Making Medical Records Medical records reviewed: Yes I reviewed the patient's medical records. Screening: Per USPSTF and CDC recommendations, given the prevalence of disease in our region, it is our hospital?s policy to screen for HIV and viral Hepatitis for all patients aged 18 and over and those with ongoing risk factors. Anthony Inquiry Pt receiving controlled substance: No Anthony was queried for this patient: No Vital Signs: 05/11/24 00:30 05/11/24 01:00 05/11/24 01:00 Temperature 97.9 F 98.2 F Temperature Source Oral Pulse Rate 75 82 Pulse Rate [Right] 101 H Respiratory Rate 16 20 Blood Pressure 164/101 H 164/104 H Blood Pressure [Right Arm] 193/97 H Blood Pressure Mean [Right Arm] 129 02 Sat by Pulse Oximetry 97 99 Oxygen Delivery Method Room Air Lab Data Lab results reviewed: Yes I reviewed the patient's lab results. Orders (Tests/Meds): ED MEDICATIONS Discontinued Medications Generic Name Dose Route Start Last Admin Trade Name Hank PRN Reason Stop Dose Admin Lidocaine HCl 15 ml 05/11/24 00:30 05/11/24 00:35 Lidocaine 2% Viscous Lacey 15ml Udc PO 05/11/24 00:31 15 ml ONCE ONE Administration ORDERS Category Date Time Status EKG Request [ECG Request] Stat Y 05/11/24 02:01 Ordered ECG Data Tracing #1: I reviewed this ECG and interpreted as documented below: ECG initial impression date: 05/11/24 ECG initial impression time: 00:28 ECG normal with no acute: arrhythmias, ischemia, conduction abnormalities, chamber hypertrophy Medical Decision Narrative: 24-year-old female presents with some central chest pain that started immediately after trying to swallow an amoxicillin pill for the ear infection she was diagnosed with earlier today. She denies any other symptoms. She is still tolerating secretions. Differential diagnosis includes but not limited to esophageal obstruction, pill esophagitis, allergic reaction. No evidence of emergent pathology based on history and exam. No concern for ACS PE or other cardiopulmonary pathology based on history and exam. Patient was given viscous lidocaine which she was able to tolerate without difficulty and provided complete resolution of symptoms. I sent in a prescription for liquid amoxicillin instead of the amoxicillin tablets. She was discharged in stable condition. Return precautions given. Procedures Risk/Benefits of Procedure(s) Were Explained: Yes Critical Care Critical Care Time Critical Care Time: No
[2024-05-11] MEDS: LIDOCAINE 2% VISCOUS SOL 15ML UDC 15 ML PO (00:35)
[2024-05-11 01:00] VITALS: BP 164/101; BP 164/104; PULSE 75; PULSE 82; RESP 20; TEMP 36.8; O2SAT 97; O2SAT 99
== END 2024-05-11 01:05 | disposition home or self-care (01) ==
LOC: ER 01:05
PROVIDERS: Emergency Provider Emergency Medicine
DX: K22.89 Other specified disease of esophagus (principal); R07.9 Chest pain, unspecified
CPT/HCPCS: 93005; 99283

== ENCOUNTER 2024-08-31 21:58 | Emergency (ER) | payer MEDICAID, SELFPAY ==
[2024-08-31 22:06] VITALS: BP 143/84; PULSE 82; RESP 16; TEMP 36.4; O2SAT 99; BMI 27.4
--- NOTE | 2024-08-31 22:35 | HMH.EDGENADL ---
Discharge Plan Disposition Patient Disposition: Home, Self-Care Prescriptions Prescriptions: No Action omeprazole 40 mg capsule,delayed release(DR/EC) 40 mg PO DAILY Patient Comments: TAKE 1 CAPSULE BY MOUTH ONCE DAILY amoxicillin 875 mg tablet 875 mg PO Q12H Qty: 20 0RF vurwcijrrbxwslb-kmhgsccse-CB [Bromfed DM] 2-30-10 mg/5 mL Syrup 5 ml PO Q6H PRN (Reason: Cough) Qty: 240 0RF amoxicillin 400 mg/5 mL suspension for reconstitution 875 mg PO BID 6 Days Qty: 131.25 0RF Referrals Follow up/Referrals: Provider,Referral, MD [Primary Care Provider] - See instructions Activity Restrictions/Add. Instructions Additional Instructions/Restrictions: There is no evidence of anything concerning from emergency standpoint regarding your head from your recent head injury. No pathologic evidence of depressed skull fracture or large hematoma etc. No other intervention is needed from an emergency standpoint you may take Tylenol or ibuprofen as needed for any discomfort you may fill in the future. Clinical Impressions Clinical Impression: Minor closed head injury Print Language Print Language: Honduran Discharge ED Provider: Fani Syed General Adult HPI General Chief complaint: Recheck/Abnormal Lab/Rx Stated complaint: hit head 09/23, headache Time Seen by Provider: 08/31/24 22:32 Mode of Arrival: Ambulatory Source of Information: Patient Description of Symptoms (Recalled from ER Triage Doc. by RN): patient hit head one week ago and has a bump. She would like the bump to be looked at History of Present Illness HPI narrative: Patient is an asymptomatic 24-year-old female who struck her head on monkey bars while climbing on them 1 week ago and is here because the man that she is with was concerned about a bump that he felt on her head and she just wanted to get to be checked out. She denies any loss of consciousness no history of any anticoagulation she had no change in mental status when this happened it was a very minor injury at the beginning. She currently has no symptoms. Related Data Home Medications ?Medication ?Instructions ?Recorded ?Confirmed omeprazole 40 mg capsule,delayed 40 mg PO DAILY 05/10/24 05/10/24 release Previous Rx's ?Medication ?Instructions ?Recorded amoxicillin 875 mg tablet 875 mg PO Q12H #20 tabs 05/10/24 irrljfjpgzzbtsw-kdpbmrsanixeccq-UC 5 ml PO Q6H PRN Cough #240 mL 05/10/24 2 mg-30 mg-10 mg/5 mL oral syrup (Bromfed DM) amoxicillin 400 mg/5 mL oral 875 mg (10.9375 mL) PO BID 6 days 05/11/24 suspension #131.25 mL Allergies Allergy/AdvReac Type Severity Reaction Status Date / Time No Known Allergies Allergy Verified 06/09/23 19:40 [facility] Disclaimer: The information contained in this section may have been updated after the patient was seen, as this information can be updated by other users. Medical History (Updated 08/31/24 @ 22:35 by Fani Syed MD) Depression Anxiety Social History (Updated 06/09/23 @ 19:47 by Kenroy Castro ([facility]), PAIN MANAGEMENT NURSE PRACTITIONER) Smoking Status: Never smoker alcohol intake: never current occupational status: employed Travel in the last 8 weeks?: None Have you lived/traveled outside US in past 30 days?: No Contact w/someone who lives/traveled outside US past 30 days?: No Exposure to someone with infectious disease in past 14 days?: No Do you have a fever (greater than 100.4 F or 38 C)?: No Have you tested positive for COVID-19?: No Exposed to someone with COVID-19 in past 14 days?: No Do you have a sore throat?: No Do you have a cough?: No Do you have any weakness?: No Do you have any diarrhea?: No Are you experiencing any unusual bleeding?: No Do you have any muscle aches/pain?: No Do you have any abdominal pain?: No Are you experiencing loss of taste or smell?: No ROS Obtained: Yes All systems reviewed & no additional complaints except as documented Physical Exam General General appearance: alert and in no apparent distress Head Head exam: atraumatic and normocephalic Neck Neck exam: Absent tenderness Respiratory Respiratory exam: Present normal lung sounds bilaterally Cardiovascular Cardiovascular exam: Present regular rate Neurological Exam Neurological exam: Present alert, oriented X3, CN II-XII intact and normal gait; Absent motor sensory deficit Medical Decision Making Medical Records Screening: Per USPSTF and CDC recommendations, given the prevalence of disease in our region, it is our hospital?s policy to screen for HIV and viral Hepatitis for all patients aged 18 and over and those with ongoing risk factors. Anthony Inquiry Pt receiving controlled substance: No Vital Signs: 08/31/24 22:06 Temperature 97.6 F Temperature Source Oral Pulse Rate [Right Radial] 82 Respiratory Rate 16 Blood Pressure [Right Arm] 143/84 H Blood Pressure Mean [Right Arm] 103 Blood Pressure Source [Right Arm] Automatic Cuff 02 Sat by Pulse Oximetry 99 Oxygen Delivery Method Room Air Medical Decision Narrative: Patient with above history and physical [place] CT head negative Nexus negative no objective evidence of depressed skull fracture or hematoma etc. Certainly no indication for any CT imaging of the head or the neck but she was also reassured that I do not feel any pathologic abnormalities she is also asymptomatic. She was reassured and discharged in stable condition. Critical Care Critical Care Time Critical Care Time: No
[2024-08-31 22:40] VITALS: BP 121/82; PULSE 81
[2024-08-31 22:41] VITALS: BP 121/81; PULSE 81; RESP 18; TEMP 36.6; O2SAT 100
== END 2024-08-31 22:42 | disposition home or self-care (01) ==
PROVIDERS: Emergency Provider Student in an Organized Health Care Education/Training Program
DX: S09.90XA Unspecified injury of head, initial encounter (principal); R51.9 Headache, unspecified; W19.XXXA Unspecified fall, initial encounter
CPT/HCPCS: 99283

== ENCOUNTER 2024-12-17 10:46 | Outpatient (CLI) | payer MEDICAID, SELFPAY ==
--- OUTSIDE RECORDS SUMMARY | 2024-12-17 10:48 | XMS_ITS | Clinical Summary ---
[facility] Address [address] [place] [id number] Phone Care Team Providers Care Flat Knitter Helper Name Role Phone Lacy Guzman Primary Care Physicia n Conditions or Problems Problem Name Problem Code Onset Date Status Entry Date Provider Comment Standard Description Annotate Depression, major, recurrent, moderate 73669377 (SNOMED CT) 05/06 Active 05/06 [facility] Moderate recurrent major depression Depression, major, recurrent, moderate 37488351 (SNOMED CT) 05/06 Active 05/06 [facility] Moderate recurrent major depression Depression, major, recurrent, moderate 24264556 (SNOMED CT) 05/06 Active 05/06 [facility] Moderate recurrent major depression Oppositional defiant disorder 85095217 (SNOMED CT) 05/06 Active 05/06 [facility] Oppositional defiant disorder Oppositional defiant disorder 04050548 (SNOMED CT) 05/06 Active 05/06 [facility] Oppositional defiant disorder ADHD 701822092 (SNOMED CT) 11/20 Active 11/20 Lacy MAGALLON Attention deficit hyperactivity disorder ATTENTION-DEFI CIT/HYPERACTIV ITY DISORDER, COMBINED TYPE (AXI unknown 10/02 Active 10/02 Juan Nixon unknown DEPRESSIVE DISORDER NOS (AXIS I) 40435796 (SNOMED CT) 10/02 Active 10/02 Juan Nixon Depressive disorder Medications Medication Instructions Start Date Stop Date Generic Name NDC Provider RISPERDAL 1 MG TABS TAKE 1 TABLET BY MOUTH TWICE A DAY RISPERIDONE [id number] Lacy G Luana HYDRO GENERATION MANAGER RISPERDAL 1 MG TABS TAKE 1 TABLET BY MOUTH EVERY NIGHT RISPERIDONE [id number] Lacy Segalon HYDRO GENERATION MANAGER PROZAC 20 MG CAPS Take 1 daily. FLUOXETINE HCL [id number] Lacy Segalon HYDRO GENERATION MANAGER ZOLOFT 50 MG TABS Take 1 at bedtime SERTRALINE HCL 37684337277 Lacy Segalon HYDRO GENERATION MANAGER ZOLOFT 50 MG TABS Take 1 at bedtime SERTRALINE HCL [id number] Lacy Segalon HYDRO GENERATION MANAGER CONCERTA 54 MG CR-TABS Take 1 each am for ADHD METHYLPHENIDATE HCL [id number] Lacy Segalon HYDRO GENERATION MANAGER PROZAC 20 MG CAPS Take 1 daily. FLUOXETINE HCL [id number] Lacy Segalon HYDRO GENERATION MANAGER RITALIN 10 MG TABS Take 1 at 11 am and 4 pm for ADHD METHYLPHENIDATE HCL 56875282723 Lacy Segalon HYDRO GENERATION MANAGER ZOLOFT 100 MG TABS Take 1 daily SERTRALINE HCL 26395318170 Lacy Peralta Martha HYDRO GENERATION MANAGER ZOLOFT 100 MG TABS Take 1 daily SERTRALINE HCL 34304184647 Lacy Segalon HYDRO GENERATION MANAGER ZOLOFT 25 MG TABS Take 1 1/2 daily. SERTRALINE HCL [id number] Lacy Segalon HYDRO GENERATION MANAGER ZOLOFT 50 MG TABS TAKE 1 TABLET BY MOUTH ONCE A DAY SERTRALINE HCL [id number] Lacy Segalon HYDRO GENERATION MANAGER CONCERTA 36 MG CR-TABS TAKE 1 TABLET BY MOUTH EACH MORNING METHYLPHENIDATE HCL 16336211834 Lacy Peralta Martha HYDRO GENERATION MANAGER CONCERTA 36 MG CR-TABS TAKE 1 TABLET BY MOUTH EACH MORNING METHYLPHENIDATE HCL 55555081176 Lacy Segalon HYDRO GENERATION MANAGER RITALIN 5 MG TABS Take 1 at 4 pm for adhd METHYLPHENIDATE HCL 67691823020 Lacy Segalon HYDRO GENERATION MANAGER RITALIN 5 MG TABS Take 1 a day at 4 pm METHYLPHENIDATE HCL 19051311059 Lacy Segalon HYDRO GENERATION MANAGER CONCERTA 27 MG CR-TABS TAKE 1 TABLET BY MOUTH EACH MORNING METHYLPHENIDATE HCL 74863415820 Lacy Segalon HYDRO GENERATION MANAGER RITALIN 5 MG TABS Take 1 at 4 pm for adhd METHYLPHENIDATE HCL 90244957483 Lacy Segalon HYDRO GENERATION MANAGER CONCERTA 36 MG CR-TABS TAKE 1 TABLET BY MOUTH EACH MORNING METHYLPHENIDATE HCL [id number] Lacy Segalon HYDRO GENERATION MANAGER ZOLOFT 25 MG TABS Take 1 1/2 tablets daily. SERTRALINE HCL [id number] Lacy Segalon HYDRO GENERATION MANAGER CONCERTA 18 MG CR-TABS TAKE 1 TABLET BY MOUTH EACH MORNING WITH BREAKFAST METHYLPHENIDATE HCL 50390802454 Lacy Segalon HYDRO GENERATION MANAGER ZOLOFT 25 MG TABS Take 1 1/2 daily. SERTRALINE HCL 48480846921 Lacy Segalon HYDRO GENERATION MANAGER CONCERTA 27 MG CR-TABS TAKE 1 TABLET BY MOUTH EACH MORNING METHYLPHENIDATE HCL 30762723605 Lacy Segalon HYDRO GENERATION MANAGER SERTRALINE HCL 25 MG TABS One tablet by mouth daily SERTRALINE HCL [id number] Lacy Segalon HYDRO GENERATION MANAGER CONCERTA 18 MG CR-TABS TAKE 1 TABLET BY MOUTH EACH MORNING WITH BREAKFAST METHYLPHENIDATE HCL [id number] Lacy Segalon HYDRO GENERATION MANAGER ZOLOFT 25 MG TABS Take 1 1/2 tablets daily. SERTRALINE HCL [id number] Lacy Segalon HYDRO GENERATION MANAGER SERTRALINE HCL 25 MG TABS One tablet by mouth daily SERTRALINE HCL [id number] Juan Nixon Medications Administered No information available. Allergies, Adverse Reactions, Alerts Observed no known allergies at Results No information available. Plan of Care Type Date Detail Pending order Medication Recon ciliation Pending order [id number] ESTAB efoc /efoc/low Pending order Psychotherapy 60 m Crises- No E&M Pending order Medication Recon ciliation Pending order [id number] ESTAB efoc /efoc/low Pending order Psychotherapy 30 m -No E&M Medical Pending order Psychotherapy 45 m -No E&M Medical Pending order Psychotherapy 60 m Crises- No E&M Pending order Psychotherapy 30 m -No E&M Medical Pending order [id number] ESTAB efoc /efoc/low Pending order Medication Recon ciliation Pending order Psychotherapy 30 m -No E&M Medical Pending order Psychotherapy 60 m Crises- No E&M Pending order Psych Dx Eval No E&M Medical Serv Pending order [id number] ESTAB efoc /efoc/low Pending order Urine Drug Scree n w/o Confirmation Pending order [id number] ESTAB efoc /efoc/low Pending order Urine Drug Scree n w/o Confirmation Pending order Psych Dx Eval WI TH E&M -MD/VISCOSITY WORKER Only Procedures Code Procedure Name Date Entry Date [facility]-[id number] Medication Reconciliation [facility]-[id number] Giving encouragement to exercise [facility]-[id number] Dietary management education/guidance/counseling [facility]-[id number] Lifestyle education regarding diet 02/23 [facility]-[id number] Medication Reconciliation S[facility]-[id number] Medication Reconciliation CPT-49095 Psychotherapy 60m Crises- No E&M [facility]-[id number] Medication Reconciliation CPT-12680 Psychotherapy 30m -No E&M Medical CPT-58114 Psychotherapy 45m -No E&M Medical CPT-35858 Psychotherapy 60m Crises- No E&M CPT-94205 Psychotherapy 30m -No E&M Medical [id number] Medication Reconciliation CPT-74773 Psychotherapy 30m -No E&M Medical CPT-42901 Psychotherapy 60m Crises- No E&M CPT-37706 Psych Dx Eval No E&M Medical Serv [id number] [facility] Test # Urine Drug Screen w/o Confirmation [id number] [facility] Test # Urine Drug Screen w/o Confirmation CPT-07715 Psych Dx Eval WITH E&M -MD/VISCOSITY WORKER Only 2014 Vital Signs Date Name Value Unit Description BMI (Body Mass Index) 34.89 kg/m2 Bod y Mass Index (Ratio) BP Diastolic 68 mm[Hg] blood pressu re, diastolic BP Systolic 112 mm[Hg] blood pressur e, systolic Heart Rate 81 /min pulse rate Weight Measured 178 [lb_av] weight E& M Weight Measured 178 [lb_av] weight E& M Respiratory Rate 20 /min respirat ory rate E&M Height 60 [in_us] height E&M Immunizations No information available. Advance Directives No information available.
--- OUTSIDE RECORDS SUMMARY | 2024-12-17 10:49 | XMS_ITS | Clinical Summary ---
Author Organization [facility] Address [address] [place] [phone] Phone Care Team Providers Care Manufacturer'S Representative Name Role Phone Unavailable Primary Care Provider Unavailabl e Allergies No known active allergies Medications * This document contains information received from the source organization and may not represent a complete record from that organization. promethazine (PHENERGAN) 12.5 mg Oral TabletIndication s:Benign paroxysmal positional vertigo, unspecified laterality Take 1 Tablet by mouth every 6 hours as needed for Nausea (dizziness). 30 Tablet 2 Active Additional Information Patient not taking.Reason: Therapy Completed, Informant: Self/Patient, Reported on 08/02/2024 promethazine-dex tromethorphan (PROMETHAZINE-DM ) 6.25-15 mg/5 mL Oral Syrup Take 5 mL by mouth every 6 hours as needed. 240 mL 2 Active Additional Information Patient not taking.Reason: Therapy Completed, Reported on 08/02/2024 Active Problems Problem Noted Date Diagnosed Date Depression 07/19/2022 Speech delay 08/04/2009 Immunizations Immunization Administration Dates Next Due DTaP 01/12/2006, 5,11/17/2003,10/14,2002 DTaP, Unspecified Formulation 11/17/2003, 004,2002 HPV Quadrivalent 07/07/2014,08/16/2013 Hep B/HiB 11/17/2003,10/15/2003,2002 Hepatitis A, Ped/Adol, 2 Dose 06/29/2020, 017 Hepatitis B, Unspecified Formulation 11/17/2003, 10/15/2003,2002 HiB, Unspecified Formulation 11/17/2003,10/15/19 04,2002 IPV 01/12/2006, 4,10/15/2003,03/26 Influenza Vaccine Quadrivalent 02/24/2015 Influenza Vaccine Quadrivalent PF 03/01/2017 LAST MANUFACTURED 2010-Pneum ococcal Conjugate 7 Valent 11/17/2003,2002 MMR 01/12/2006,10/15/2003 Meningococcal C Conjugate-In active Vaccine 08/16/2013 Meningococcal Conjugate 06/29/2020,08/16/2013 Tdap 08/16/2013 Varicella 08/04/2010,10/15/2003 Surgical History Surgery Date Site/Laterality Comments DENTAL SURGERY Medical History Medical History Date Comments Speech delay 08/04/2009 Family History Medical History Relation Name Comments High Blood Pressure Father Miscarriages / Stillbirths Mother Relation Name Status Comments Father Mother Social History Tobacco Use Types Packs/Day Years Used Date Smoking Tobacco: Never Cigarettes Passive Smoke Exposure: Yes Smokeless Tobacco: Never Tobacco Cessation:Counseling Given: Not Answered Comments:mom and dad smokes Alcohol Use Standard Drinks/Week Comments Never 0 (1 standard drink = 0.6 oz pur e alcohol) AUDIT-C Answer Date Recorded Q1: How often do you have a drink containing alc ohol? Never 12/04/2020 Average Number of Drinks Not on file 021 Frequency of Binge Drinking Not on file 09/2020 Sexually Active Control Partners Comments Not Currently Comments No Sex and Gender Information Value Date Recorded Sex Assigned at Not on file Legal Sex Female 5:57 AM EDT Gender Identity Not on file Sexual Orientation Not on file Obstetrics History Last Filed Vital Signs Vital Sign Reading Time Taken Comments Blood Pressure 130/90 08/02/2024 7:29 PM EDT Pulse 91 08/02/2024 7:29 PM EDT Temperature 36.7 C (98.1 F) 08/02/2024 7:29 PM EDT Respiratory Rate 20 08/02/2024 7:29 PM EDT Oxygen Saturation 99% 08/02/2024 7:29 PM EDT Inhaled Oxygen Concentration - - Weight 123.8 kg (273 lb) 08/02/2024 7:29 PM EDT Height 167.6 cm (5' 6 ) 08/02/2024 7:29 PM EDT Body Mass Index 44.06 08/02/2024 7:29 PM EDT Plan of Treatment Health Maintenance Due Date Last Done Comments Hepatitis B Vaccine (4 of 4 - 4-dose series) 12/10/2003 11/17/2003, 11/17/2003, 10/15/2003, Additional history exists Meningococcal B Vaccine (1 of 2 - Standard) 2018 Annual Wellness Exam 03/24/2021 03/24/2020 Cervical Cancer Screening 2023 Pap Smear 2023 DTaP/TDaP/Td (7 - Td or Tdap) 08/17/2023 08/16/2013, 01/12/2006, 11/03/2004, Additional history exists COVID-19 Vaccine ( - season) 2023 12/15/2020, 11/24/2020 Influenza Vaccine (#1) 2024 , 03/01/2017, 02/24/2015, Additional history exists Pneumococcal Vaccine 0-49 Aged Out 11/17/2003, No longer eligible based on patient's age to complete this topic HPV Completed 07/07/2014, 08/16/2013 Goals Goal Patient Goal Type Associated Problems Recent Progress Patient-Stated? Author Maintain a healthy diet, exercise regularly and maintain an ideal body weight General No Flor Murguia MA Maintain a healthy diet, exercise regularly and maintain an ideal body weight General No Bridgett Hudson [facility] Insurance [place] [id number] [facility]
== END 2024-12-17 23:59 | disposition home or self-care (01) ==
LOC: LAB 10:47
PROVIDERS: PCP Nurse Practitioner Family; Visit Provider Nurse Practitioner Family
DX: Z00.00 Encounter for general adult medical examination without abnormal findings (principal); E55.9 Vitamin D deficiency, unspecified; Z13.0 Encounter for screening for diseases of the blood and blood-forming organs and certain disorders involving the immune mechanism; Z13.1 Encounter for screening for diabetes mellitus; Z13.220 Encounter for screening for lipoid disorders; Z11.59 Encounter for screening for other viral diseases; Z13.29 Encounter for screening for other suspected endocrine disorder

== ENCOUNTER 2025-02-26 17:23 | Emergency (ER) | payer MEDICAID, SELFPAY ==
--- OUTSIDE RECORDS SUMMARY | 2025-01-07 06:30 | XMS_ITS ---
Author Organization [facility] Address [address] [place] [address] Care Team Providers Care Hospital Orderly Name Role Phone Jackie Zimmerman Unavailable [phone] REASON FOR VISIT Discuss BC options Encounters Encounter Location Date Provider Diagnosis [facility] [address] [place] [address] 01/07/2025 Jackie Zimmerman Plan Of Treatment No Information Progress Notes * Mendy RODGERSB: [birth year] (25 yo F)Acc No.[id number]:01/07/2025 Progress Note Patient: Shar Nunezantha Provider: Guilherme Zimmerman APRN :2000 A ge:24 Y S ex:Female Date:01/07/2025 Address:[address], [place] Subjective: * Chief Complaints: * D iscuss BC options * Electronic signature of Alex Zimmerman APRN on 02/26/2025 at 05:33 PM EDT Sign off status: Pending Visit Status: N /S (No-Show) * Provider: Guilherme Zimmerman APRN Date: 0 01/07/2025 Generated for Noel hood/Kailash/eTransmitting on: 1 05:33 PM EDT
--- OUTSIDE RECORDS SUMMARY | 2025-02-26 17:32 | XMS_ITS | Clinical Summary ---
[facility] Address [address] [place] [phone] Phone Care Team Providers Care Network Manager Name Role Phone Lacy Guzman Primary Care Physicia n Conditions or Problems Problem Name Problem Code Onset Date Status Entry Date Provider Comment Standard Description Annotate Depression, major, recurrent, moderate 17020763 (SNOMED CT) 05/06 [facility] Mod[facility] recurrent major depression Depression, major, recurrent, moderate 05826999 (SNOMED CT) 05/06 Active 05/06 [facility] Moderate recurrent major depression Depression, major, recurrent, moderate 05771269 (SNOMED CT) 05/06 Active 05/06 [facility] Moderate recurrent major depression Oppositional defiant disorder 21869886 (SNOMED CT) 05/06 Active 05/06 [facility] Oppositional defiant disorder Oppositional defiant disorder 10417695 (SNOMED CT) 05/06 Active 05/06 [facility] Oppositional defiant disorder ADHD 581920864 (SNOMED CT) 11/20 Active 11/20 Lacy MAGALLON Attention deficit hyperactivity disorder ATTENTION-DEFI CIT/HYPERACTIV ITY DISORDER, COMBINED TYPE (AXI unknown 10/02 Active 10/02 Juan Nixon unknown DEPRESSIVE DISORDER NOS (AXIS I) 65336220 (SNOMED CT) 10/02 Active 10/02 Juan Nixon Depressive disorder Medications Medication Instructions Start Date Stop Date Generic Name NDC Provider RISPERDAL 1 MG TABS TAKE 1 TABLET BY MOUTH TWICE A DAY RISPERIDONE [id number] Lacy G Martha CCO RISPERDAL 1 MG TABS TAKE 1 TABLET BY MOUTH EVERY NIGHT RISPERIDONE 53126861451 Lacy Segalon CCO PROZAC 20 MG CAPS Take 1 daily. FLUOXETINE HCL 12076088254 Lacy Segalon CCO ZOLOFT 50 MG TABS Take 1 at bedtime SERTRALINE HCL 56792819650 Lacy Segalon CCO ZOLOFT 50 MG TABS Take 1 at bedtime SERTRALINE HCL 54826957834 Lacy Segalon CCO CONCERTA 54 MG CR-TABS Take 1 each am for ADHD METHYLPHENIDATE HCL 12603525438 Lacy Segalon CCO PROZAC 20 MG CAPS Take 1 daily. FLUOXETINE HCL 69723740745 Lacy Segalon CCO RITALIN 10 MG TABS Take 1 at 11 am and 4 pm for ADHD METHYLPHENIDATE HCL 50367067036 Lacy Segalon CCO ZOLOFT 100 MG TABS Take 1 daily SERTRALINE HCL 82453994700 Lacy Peralta Martha CCO ZOLOFT 100 MG TABS Take 1 daily SERTRALINE HCL 69403490654 Lacy Seglaon CCO ZOLOFT 25 MG TABS Take 1 1/2 daily. SERTRALINE HCL 31152006862 Lacy Segalon CCO ZOLOFT 50 MG TABS TAKE 1 TABLET BY MOUTH ONCE A DAY SERTRALINE HCL 02438727852 Lacy Segalon CCO CONCERTA 36 MG CR-TABS TAKE 1 TABLET BY MOUTH EACH MORNING METHYLPHENIDATE HCL 77600458335 Lacy Peralta Martha CCO CONCERTA 36 MG CR-TABS TAKE 1 TABLET BY MOUTH EACH MORNING METHYLPHENIDATE HCL 58063328309 Lacy Segalon CCO RITALIN 5 MG TABS Take 1 at 4 pm for adhd METHYLPHENIDATE HCL 36862478130 Lacy Segalon CCO RITALIN 5 MG TABS Take 1 a day at 4 pm METHYLPHENIDATE HCL 70067271633 Lacy Segalon CCO CONCERTA 27 MG CR-TABS TAKE 1 TABLET BY MOUTH EACH MORNING METHYLPHENIDATE HCL 80681633306 Lacy Segalon CCO RITALIN 5 MG TABS Take 1 at 4 pm for adhd METHYLPHENIDATE HCL 08367782423 Lacy Segalon CCO CONCERTA 36 MG CR-TABS TAKE 1 TABLET BY MOUTH EACH MORNING METHYLPHENIDATE HCL 69009796898 Lacy Segalon CCO ZOLOFT 25 MG TABS Take 1 1/2 tablets daily. SERTRALINE HCL 71347226300 Lacy Segalon CCO CONCERTA 18 MG CR-TABS TAKE 1 TABLET BY MOUTH EACH MORNING WITH BREAKFAST METHYLPHENIDATE HCL 92796540265 Lacy Segalon CCO ZOLOFT 25 MG TABS Take 1 1/2 daily. SERTRALINE HCL 44935884040 Lacy Segalon CCO CONCERTA 27 MG CR-TABS TAKE 1 TABLET BY MOUTH EACH MORNING METHYLPHENIDATE HCL 23513642701 Lacy Segalon CCO SERTRALINE HCL 25 MG TABS One tablet by mouth daily SERTRALINE HCL 29906547355 Lacy Segalon CCO CONCERTA 18 MG CR-TABS TAKE 1 TABLET BY MOUTH EACH MORNING WITH BREAKFAST METHYLPHENIDATE HCL 99836421717 Lacy Segalon CCO ZOLOFT 25 MG TABS Take 1 1/2 tablets daily. SERTRALINE HCL 54803675997 Lacy Segalon CCO SERTRALINE HCL 25 MG TABS One tablet by mouth daily SERTRALINE HCL 98921955468 Juan Nixon Medications Administered No information available. Allergies, Adverse Reactions, Alerts Observed no known allergies at Results No information available. Plan of Care Type Date Detail Pending order Medication Recon ciliation Pending order [id number] ESTAB efoc /efoc/low Pending order Psychotherapy 60 m Crises- No E&M Pending order Medication Recon ciliation Pending order [id number] ESTAB efoc /efoc/low Pending order Psychotherapy 30 m -No E&M Medical Pending order Psychotherapy 45 m -No E&M Medical Pending order Psychotherapy 60 m Crises- No E&M Pending order Psychotherapy 30 m -No E&M Medical Pending order [id number] ESTAB efoc /efoc/low Pending order Medication Recon ciliation Pending order Psychotherapy 30 m -No E&M Medical Pending order Psychotherapy 60 m Crises- No E&M Pending order Psych Dx Eval No E&M Medical Serv Pending order [id number] ESTAB efoc /efoc/low Pending order Urine Drug Scree n w/o Confirmation Pending order [id number] ESTAB efoc /efoc/low Pending order Urine Drug Scree n w/o Confirmation Pending order Psych Dx Eval WI TH E&M -MD/B2B SALES PROFESSIONAL Only Procedures Code Procedure Name Date Entry Date [facility]-[id number] Medication Reconciliation [facility]-[id number] Giving encouragement to exercise [facility]-[id number] Dietary management education/guidance/counseling [facility]-[id number] Lifestyle education regarding diet 02/23 [facility]-[id number] Medication Reconciliation S[facility]-[id number] Medication Reconciliation CPT-30266 Psychotherapy 60m Crises- No E&M [facility]-[id number] Medication Reconciliation CPT-23497 Psychotherapy 30m -No E&M Medical CPT-69856 Psychotherapy 45m -No [facility] Medical CPT-14673 Psychotherapy 60m Crises- No E&M CPT-21075 Psychotherapy 30m -No E&M Medical [id number] Medication Reconciliation CPT-38340 Psychotherapy 30m -No E&M Medical CPT-71300 Psychotherapy 60m Crises- No E&M CPT-80185 Psych Dx Eval No [facility] Medical Serv [id number] [facility] # Urine Drug Screen w/o Confirmation [id number] [facility] # Urine Drug Screen w/o Confirmation CPT-18321 Psych Dx Eval WITH E&M -MD/B2B SALES PROFESSIONAL Only 2014 Vital Signs Date Name Value [...]
--- OUTSIDE RECORDS SUMMARY | 2025-02-26 17:33 | XMS_ITS | Clinical Summary ---
Author Organization [facility] Address [address] [place] [phone] Phone Care Team Providers Care Trainman Name Role Phone Unavailable Primary Care Provider [...] Influenza Vaccine Quadrivalent PF 03/01/2017 LAST MANUFACTURED 2011-Pneum ococcal Conjugate 7 Valent 11/17/2003,2002 MMR 01/12/2006,10/15/2003 [...] on file Sexual Orientation Not on file Last Filed Vital Signs Vital Sign Reading [...] 01/12/2006, 11/03/2004, Additional history exists COVID-19 Vaccine (3 - season) 2024 12/15/2020, 11/24/2020 Influenza Vaccine (#1) 2024 , [...] ideal body weight General No Bridgett Hudson RMA Insurance [facility] [employer] [place] [employer]
--- OUTSIDE RECORDS SUMMARY | 2025-02-26 17:33 | XMS_ITS | Patient Health Record ---
Author Organization [facility] Address [address] [facility] [address] [place] [address] Care Team Providers Care Supervisor Ornamental Ironworking Name Role Phone Jackie Zimmerman [phone] Reason For Referral No Information Social History Social History Sexual History: Social Info Question Answer Notes Sexual History Had sex in the past 12 months (vaginal, oral, or anal)? Yes Drugs/Alcohol: Social Info Question Answer Notes Drugs Have you used drugs other than those for medical reasons in the past 12 months? No Alcohol Screen Did you have a drink containing alcohol in the past year? Yes Points 0 Interpretation Negative Tobacco Use: Social Info Question Answer Notes Tobacco Use/Smoking Are you a former smoker Tobacco use other than smoking: Are you an other tobac co user? No Plan Of Treatment No Information Insurance Providers Payer Name Payer Address Payer Phone Subscriber Number Group Number Insured Name Patient Relationship to Insured Coverage Start Date Coverage End Date [employer] Medicaid [place] [address] [address] [place] [address] [id number] Wilda Taylor Self - patient is the insured
[2025-02-26 17:36] VITALS: BP 145/91; PULSE 83; RESP 15; TEMP 36.6; O2SAT 99; BMI 36.0
[2025-02-26 17:43] LABS: Microscopic, Urine URINE MICROSCOPIC (MICROSCOPIC)
[2025-02-26 17:44] LABS: Bilirubin,Urine Negative (Negative); Color,Urine YELLOW (Yellow); Glucose,Urine (UA) Negative (Negative); Ketones,Urine Negative (Negative); Leukocyte Esterase,Urine Negative (Negative); PH,Urine 8.5 (5.0-8.5); Protein,Urine Negative (Negative); Specific Gravity, Urine 1.015 (1.005-1.030); Urobilinogen,Urine 2.0 EU/dl (0.2)
--- NOTE | 2025-02-26 17:44 | ED_ITS ---
<Statement entered by Debbie Jiménez DO - 02/27/25 00:20> I was consulted by the EDI, and we discussed the complexity of problems being addressed. I approve the treatment and management plan for this patient's care in the emergency department, thus performing a substantial portion of the medical decision making. Debbie Jiménez DO Discharge Plan Disposition Patient Disposition: Home, Self-Care Condition: Good Prescriptions Prescriptions: New phenazopyridine [Pyridium] 200 mg tablet 200 mg PO TID Qty: 15 0RF No Action triamcinolone acetonide 0.025 % cream 1 applic topical BID Qty: 15 0RF omeprazole 40 mg capsule,delayed release(DR/EC) 40 mg PO DAILY Patient Comments: TAKE 1 CAPSULE BY MOUTH ONCE DAILY Referrals Follow up/Referrals: Hunter Alatorre APRN [Primary Care Provider, Medical] - See instructions Activity Restrictions/Add. Instructions Additional Instructions/Restrictions: Increase fluids, water and not soda or tea. Can drink cranberry juice or cranberry extract. Wipe front to back Wear cotton underwear Empty bladder after intercourse We will give you pyridium to help with frequency We will call you if your urine culture comes back positive and need antibiotics and at that time we will call you in some. Be sure to follow-up anytime for new or worsening symptoms Follow-up with primary care this week. Clinical Impressions Clinical Impression: UTI (urinary tract infection) Qualifiers: Urinary tract infection type: acute cystitis Hematuria presence: without hematuria Qualified Code(s): N30.00 - Acute cystitis without hematuria Stand Alone Forms Stand Alone Forms: Work/School Release Instructions Patient Instructions: DI for Urinary Tract Infection (UTI) Print Language Print Language: Romanian Discharge ED Provider: Debbie Jiménez General Adult HPI <Kenroy Castro ([facility]), [employer] - Last Filed: 02/26/25 18:39> General Chief complaint: Urogenital-Female Stated complaint: burning with urination, and often urination Time Seen by Provider: 02/26/25 17:25 Mode of Arrival: Ambulatory Source of Information: Patient Description of Symptoms (Recalled from ER Triage Doc. by RN): patient states she just had a uti and believes she has another one, she has been burning and having frequent urination for a few days History of Present Illness HPI narrative: 25-year-old female presents for urinary frequency, hesitancy, and burning with urination for 2 days. Patient states she had a UTI 2 weeks ago and finished up antibiotics and got better and then 2 days ago symptoms returned. Related Data Home Medications ?Medication ?Instructions ?Recorded ?Confirmed omeprazole 40 mg capsule,delayed 40 mg PO DAILY 10/05/24 release Previous Rx's ?Medication ?Instructions ?Recorded triamcinolone acetonide 0.025 % 1 applic topical BID # 15 grams 10/05/24 topical cream phenazopyridine 200 mg tablet 200 mg PO TID 6 doses #1 5 tabs 02/26/25 (Pyridium) Allergies Allergy/AdvReac Type Severity Reaction Status Date / Time No Known Allergies Allergy Verified 10/05/24 13:46 PFSH <Kenroy Castro ([facility]), [employer] - Last Filed: 02/26/25 18:39> PFS Disclaimer: The information contained in this section may have been updated after the patient was seen, as this information can be updated by other users. Medical History , [employer]) Depression Anxiety Social History , [employer]) Smoking Status: Current every day smoker alcohol intake: never current occupational status: employed Travel in the last 8 weeks?: None Have you lived/traveled outside [place] in past 30 days?: No Contact w/someone who lives/traveled outside [place] past 30 days?: No Exposure to someone with infectious disease in past 14 days?: No Do you have a fever (greater than 100.4 F or 38 C)?: No Have you tested positive for COVID-19?: No Exposed to someone with COVID-19 in past 14 days?: No Do you have a sore throat?: No Do you have a cough?: No Do you have any weakness?: No Do you have any diarrhea?: No Are you experiencing any unusual bleeding?: No Do you have any muscle aches/pain?: No Do you have any abdominal pain?: No Are you experiencing loss of taste or smell?: No <[facility] - Last Filed: 02/26/25 18:39> ROS Obtained: Yes Systems reviewed as appropriate & no additional complaints except as documented Genitourinary Female Genitourinary: Reports system reviewed and no additional complaints, except as documented, Reports as per HPI, Reports dysuria, Reports urinary frequency, Reports urinary hesitancy and Reports urinary urgency Physical Exam <Malikajoie Castro ([facility]), [employer] - Last Filed: 02/26/25 18:39> General General appearance: alert and in no apparent distress ENT ENT exam: Present normal exam Respiratory Respiratory exam: Present normal lung sounds bilaterally Cardiovascular Cardiovascular exam: Present regular rate and normal rhythm Abdominal Exam Abdominal exam: Present soft and normal bowel sounds Neurological Exam Neurological exam: Present alert and oriented X3 Skin Skin exam: Present warm and intact Medical Decision Making <Kenroy Castro ([facility]), [employer] - Last Filed: 02/26/25 18:39> Medical Records Medical records reviewed: Yes I reviewed the patient's medical records. Screening: Per USPSTF and CDC recommendations, given the prevalence of disease in our region, it is our hospital?s policy to screen for HIV and viral Hepatitis for all patients aged 18 and over and those with ongoing risk factors. Anthony Inquiry Pt receiving controlled substance: No Vital Signs: 02/26/25 17:36 02/26/25 19:10 02/26/25 19:32 Temperature 97.9 F 98.6 F Temperature Source Oral Oral Pulse Rate 68 68 Pulse Rate [Right Radial] 83 Respiratory Rate 15 16 18 Blood Pressure 150/94 H 150/94 H Blood Pressure [Right Arm] 145/91 H Blood Pressure Mean [Right Arm] 109 Blood Pressure Source [Right Arm] Automatic Cuff Blood Pressure Position [Right Arm] Sitting 02 Sat by Pulse Oximetry 99 100 Oxygen Delivery Method Room Air Room Air Room Air Lab Data Lab results reviewed: Yes I reviewed the patient's lab results. Lab Results 02/26/25 17:33: Urine Color Yellow, Urine Appearance Sl cloudy, Urine pH 8.5, Ur Specific [place] 1.015, Urine Protein Negative, Urine Glucose (UA) Negative, Urine Ketones Negative, Urine Blood Negative, Urine Nitrate Negative, Urine Bi lirubin Negative, Urine Urobilinogen 2.0, Ur Leukocyte Esterase Negative, Urine RBC 3-5, Urine WBC 3-5, Ur Squamous Epith Cells 20-50, Urine Bacteria 4+, Urine HCG, Qual Negative 02/26/25 18:35: Urine Color Yellow, Urine Appearance Clear, Urine pH 8.5, Ur Specific [place] 1.020, Urine Protein Negative, Urine Glucose (UA) Negative, Urine Ketones 1+, Urine Blood Negative, Urine Nitrate Negative, Urine Bilirubin Negative, Urine Urobilinogen 2.0, Ur Leukocyte Esterase Negative, Urine RBC 3-5, Urine WBC 3-5, Ur Squamous Epith Cells 20-50, Amorphous Sediment 4+, Urine Bacteria 2+ Orders (Tests/Meds): ED MEDICATIONS Discontinued Medications Generic Name Dose Route Start Last Admin Trade Name Freq PRN Reason Stop Dose Admin Phenazopyridine HCl 200 mg 02/26/25 19:17 02/26/25 19:37 Phenazopyridine 200mg Tablet PO 02/26/25 19:18 200 mg ONCE ONE Administration ORDERS Category Date Time Status UA [Urinalysis and Microscopic] Stat Lab 02/26/25 18:35 Completed Urinalysis and Microscopic Stat Lab 02/26/25 17:33 Completed Urine Chlam/Gono/Trich ([facility]) Stat Lab 02/26/25 17:33 Received Urine , HCG Qual. Stat Lab 02/26/25 17:33 Completed Medical Decision Narrative: In summary patient is a 25-year-old female who presents to the emergency department for evaluation of urinary frequency, urgency, hesitancy, and burning with urination. Patient is hemodynamically stable upon arrival, afebrile. Unremarkable physical exam. Differential diagnosis includes UTI, STI. Initial workup will be conducted with urine, STI workup. Initial inventions include p.o. challenge. Initial workup reviewed by md urinalysis STI workup. Upon repeat evaluation patient resting comfortably in bed, was able to drink Gatorade without any issues. Given this patient appropriate for discharge at this time will discharge home with antibiotics follow-up with PCP <Debbie Jiménez, DO - Last Filed: 02/27/25 00:20> Vital Signs: 02/26/25 17:36 02/26/25 19:10 02/26/25 19:32 Temperature 97.9 F 98.6 F Temperature Source Oral Oral Pulse Rate 68 68 Pulse Rate [Right Radial] 83 Respiratory Rate 15 16 18 Blood Pressure 150/94 H 150/94 H Blood Pressure [Right Arm] 145/91 H Blood Pressure Mean [Right Arm] 109 Blood Pressure Source [Right Arm] Automatic Cuff Blood Pressure Position [Right Arm] Sitting 02 Sat by Pulse Oximetry 99 100 Oxygen Delivery Method Room Air Room Air Room Air Lab Data Lab Results 02/26/25 17:33: Urine Color Yellow, Urine Appearance Sl cloudy, Urine pH 8.5, Ur Specific [place] 1.015, Urine Protein Negative, Urine Glucose (UA) Negative, Urine Ketones Negative, Urine Blood Negative, Urine Nitrate Negative, Urine Bilirubin Negative, Urine Urobilinogen 2.0, Ur Leukocyte Esterase Negative, Urine RBC 3-5, Urine WBC 3-5, Ur Squamous Epith Cells 20-50, Urine Bacteria 4+, Urine HCG, Qual Negative 02/26/25 18:35: Urine Color Yellow, Urine Appearance Clear, Urine pH 8.5, Ur Specific [place] 1.020, Urine Protein Negative, Urine Glucose (UA) Negative, Urine Ketones 1+, Urine Blood Negative, Urine Nitrate Negative, Urine Bilirubin Negative, Urine Urobilinogen 2.0, Ur Leukocyte Esterase Negative, Urine RBC 3-5, Urine WBC 3-5, Ur Squamous Epith Cells 20-50, Amorphous Sediment 4+, Urine Bacteria 2+ Orders (Tests/Meds): ED MEDICATIONS Discontinued Medications Generic Name Dose Route Start Last Admin Trade Name Freq PRN Reason Stop Dose Admin Phenazopyridine HCl 200 mg 02/26/25 19:17 02/26/25 19:37 Phenazopyridine 200mg Tablet PO 02/26/25 19:18 200 mg ONCE ONE Administration ORDERS Category Date Time Status UA [Urinalysis and Microscopic] Stat Lab 02/26/25 18:35 Completed Urinalysis and Microscopic Stat Lab 02/26/25 17:33 Completed Urine Chlam/Gono/Trich ([facility]) Stat Lab 02/26/25 17:33 Received Urine , HCG Qual. Stat Lab 02/26/25 17:33 Completed Medical Decision Narrative: In summary patient is a 25-year-old female who presents to the emergency department for evaluation of urinary frequency, urgency, hesitancy, and burning with urination. Patient is hemodynamically stable upon arrival, afebrile. Unremarkable physical exam. Differential diagnosis includes UTI, STI, , dehydration, amongst others. Initial workup will be conducted with urine, STI workup and urine . Initial inventions include p.o. challenge. Initial workup reviewed by me urinalysis STI workup. Patient's initial UA showed grossly contaminated with 20-50 squamous cells, bacteria negative nitrites only 3-5 white blood cells. Repeat UA was obtained which showed similar. The patient is symptomatic, her urine is grossly contaminated therefore I discussed waiting for urine culture to treat. Patient is stable and patient felt comfortable with this plan. Patient has had no back pain, patient denies any vaginal discharge or concern for STDs STIs. Patient has not had any fevers low concern for pyelonephritis. Was given a dose of Pyridium in the emergency department and discharged with a prescription. Patient was otherwise discharged home in stable condition return precautions were discussed. Critical Care <Kenroy Castro ([facility]), [employer] [facility] - Last Filed: 02/26/25 18:39> Critical Care Time Critical Care Time: No
[2025-02-26 18:03] LABS: Bacteria,Urine 4+ /lpf; Squamous Epithelial Cell,Urine 20-50 #/hpf (0-5)
[2025-02-26 18:39] LABS: Microscopic, Urine URINE MICROSCOPIC (MICROSCOPIC)
[2025-02-26 18:41] LABS: Bilirubin,Urine Negative (Negative); Color,Urine YELLOW (Yellow); Glucose,Urine (UA) Negative (Negative); Ketones,Urine 1+ (Negative); Leukocyte Esterase,Urine Negative (Negative); PH,Urine 8.5 (5.0-8.5); Protein,Urine Negative (Negative); Specific Gravity, Urine 1.020 (1.005-1.030); Urobilinogen,Urine 2.0 EU/dl (0.2)
[2025-02-26 19:10] VITALS: BP 150/94; PULSE 68; RESP 16; O2SAT 100
[2025-02-26 19:13] LABS: Amorphous Sediment,Urine 4+ /lpf; Bacteria,Urine 2+ /lpf; Squamous Epithelial Cell,Urine 20-50 #/hpf (0-5)
[2025-02-26 19:32] VITALS: BP 150/94; PULSE 68; RESP 18; TEMP 37; O2SAT 100
[2025-02-26] MEDS: PHENAZOPYRIDINE 200MG TABLET 200 MG PO (19:37)
[2025-02-26 19:45] LABS: Urine Pregnancy, HCG Qual. Negative (Negative)
== END 2025-02-26 19:51 | disposition home or self-care (01) ==
PROVIDERS: Nurse Practitioner Family; Emergency Provider Student in an Organized Health Care Education/Training Program; PCP Nurse Practitioner Family
DX: N30.00 Acute cystitis without hematuria (principal); R30.0 Dysuria; R35.0 Frequency of micturition; F17.210 Nicotine dependence, cigarettes, uncomplicated
CPT/HCPCS: 81001; 81025; 87086; 87491; 87591; 87661; 99283